=== PATIENT | male | born 1965 | race Caucasian/White ===

== ENCOUNTER 2019-08-05 17:38 | Inpatient (IN) | payer OTHER ==
[~2019-08-05] VITALS: Ht 170.2 cm; Wt 61.7 kg
[2019-08-05 17:50] VITALS: BP 102/69
[2019-08-05 18:42] LABS: BASOPHILS % (AUTO) 0.1 % (0.0-2.0); EOSINOPHILS # (AUTO) 0.1 K/uL (0-0.4); EOSINOPHILS % (AUTO) 1.2 % (0.0-4.0); HEMATOCRIT 30.1 % (36-52); HEMOGLOBIN 9.9 g/dL (12.0-18.0); LYMPHOCYTES % (AUTO) 12.1 % (20.5-51.1); MEAN CORPUSCULAR HEMOGLOBIN 28 pg (27-31); MEAN CORPUSCULAR HGB CONC 33 g/dL (33-37); MEAN CORPUSCULAR VOLUME 84.5 fL (80-94); MONOCYTES # (AUTO) 0.7 K/uL (0.8-1.0); MONOCYTES % (AUTO) 8.5 % (1.7-9.3); NEUTROPHILS # (AUTO) 6.3 K/uL (1.8-7.7); NEUTROPHILS % (AUTO) 78.1 % (42.2-75.2); PLATELET COUNT (AUTO) 531 K/uL (140-450); RED BLOOD CELL COUNT(AUTO) 3.56 MIL/uL (4.20-6.10); RED CELL DISTRIBUTION WIDTH 17.6 % (11.6-13.7); WHITE BLOOD COUNT (AUTO) 8.1 K/uL (4.8-10.8)
[2019-08-05 19:24] LABS: ANION GAP 14.1 (8-16); CARBON DIOXIDE 22.7 mmol/L (21-32); POTASSIUM 3.8 mmol/L (3.5-5.1)
[2019-08-05 19:25] LABS: ALBUMIN 2.6 g/dL (3.4-5.0); CREATININE 1.1 mg/dL (0.7-1.3); TOTAL BILIRUBIN 0.4 mg/dL (0.0-1.0)
--- NOTE | 2019-08-05 20:00 | NUR ---
CONTINUOUS DIARRHEA AND AB PAIN X 1 MONTH WITH NO IMPROVEMENTS AFTER ANTIBIOTICS REFERRED FROM [facility] FOR POSSIBLE CDIFF. PATIENT ALSO STATES THAT HE HAS HAD YELLOW DIARRHEA. ERMD MADE AWARE OF STATUS. SIDE RAILS X1. PMH- DENIES RX- DENIES
--- NOTE | 2019-08-05 22:33 | NUR ---
PATIENT TAKEN TO CT.
[2019-08-05 22:53] LABS: AMYLASE 105 U/L (25-115); LIPASE 202 U/L (73-393)
--- NOTE | 2019-08-05 23:18 | NUR ---
PATIENT IS SLEEPING AT THIS TIME. WILL CONTINUE TO MONITOR.
[2019-08-05 23:22] LABS: APPEARANCE,URINE CLEAR (CLEAR); BILIRUBIN,URINE NEGATIVE (NEGATIVE); BLOOD, URINE NEGATIVE (NEGATIVE); COLOR,URINE YELLOW (YELLOW); LEUKOCYTE ESTERASE ,URINE NEGATIVE (NEGATIVE); NITRITE, URINE NEGATIVE (NEGATIVE); PH,URINE 5.5 (5.0-9.0); UGLUCOSE NEGATIVE (NEGATIVE)
[2019-08-05 23:42] LABS: RBC,URINE 0-5 /HPF (0-5); WBC,URINE 0-5 /HPF (0-5)
--- NOTE | 2019-08-06 00:12 | NUR ---
PATIENT IS SLEEPING AT THIS TIME. NO DISTRESS. WILL CONTINUE TO MONITOR.
--- NOTE | 2019-08-06 00:51 | NUR ---
STOOL SAMPLE COLLECTED , SENT TO LAB FOR CULTURE. PT C/O HEADACHE DR BERG MADE AWARE WILL CONTINUE W/ ORDERS.
[2019-08-06] MEDS ORDERED: ACETAMINOPHEN 325 MG TAB PO ONE (00:55)
[2019-08-06] MEDS ORDERED: ACETAMINOPHEN EXTRA STRENGTH 500 MG TAB ONE (00:59)
--- NOTE | 2019-08-06 02:50 | NUR ---
SECOND STOOL SAMPLE COLLECTED. STOOL IS BROWN FLUFFY LIQUID; TYPE 6.
[2019-08-06] MEDS ORDERED: ALBUTEROL 0.083% 2.5 MG/3 ML NEBU INH PRN (03:40)
[2019-08-06] MEDS ORDERED: HYDROcodone/APAP 5/325 MG 1 TAB TAB PO PRN (03:40)
[2019-08-06] MEDS ORDERED: MORPHINE SULFATE 4 MG/ML SYR IVP PRN (03:40)
[2019-08-06] MEDS ORDERED: ACETAMINOPHEN 325 MG TAB PO PRN (03:40)
[2019-08-06] MEDS ORDERED: VANCOMYCIN 1,000 MG VIAL ONE (04:55)
--- NOTE | 2019-08-06 05:00 | NUR ---
PER KIM PEAROSN GIVEN PO.
--- NOTE | 2019-08-06 05:12 | NUR ---
Admited to MED SURG. Belongings list completed. Report to JENNY MARTINS . Addendum: 08/06/19 at 0723 [address]
[2019-08-06 05:15] VITALS: BP 104/66
--- NOTE | 2019-08-06 05:15 | NUR ---
RECEIVED PT FROM ER NURSEMARCELO. PT CAME IN WHEELCHAIR AND AMBULATED TO [facility] BED. PT WENT RESTROOM AND HAD DIARRHEA. NO SOB OR ANY RESPIRATORY DISTRESS NOTED ON ROOM AIR. DENIES PAIN. IV SITE ON LAC, 20G, INTACT, PATENT AND ASYMPTOMATIC. MRSA NARES SWAB DONE, VITAL SIGN CHECKED, WITHIN PT'S BASELINE. BOARD UPDATED, INTRODUCE SELF TO PT. ORIENT ROOM TO PT. DX: DIARRHEA, RULE OUT C. DIFF, AND HIV. PLAN OF CARE REVIEWED WITH PT. PT VERBALIZED UNDERSTANDING. BED IN LOW POSITION, CALL LIGHT WITHIN REACH.
[2019-08-06] MEDS: DEXT 5% /NACL 0.9% 1,000 ML IV SCH ×3 (05:50→23:40)
[2019-08-06] MEDS: metroNIDAZOLE 500 MG/NS PREMIX 100 ML IV SCH ×3 (05:51→21:11)
--- NOTE | 2019-08-06 05:51 | NUR ---
GIVEN FLUID AND FLAGYL MD ORDERED. HELD PO VANCOMYCIN D/T LAST DOSE GIVEN AT 0505 AM AT ER.
[2019-08-06] MEDS ORDERED: VANCOMYCIN 1,000 MG VIAL PO SCH ×2 (06:00→07:00)
[2019-08-06] MEDS ORDERED: VANCOMYCIN 1,000 MG VIAL PO STA (06:23)
--- NOTE | 2019-08-06 06:47 | NUR ---
PT LYING IN THE BED. NO ACUTE DISTRESS NOTED.
--- NOTE | 2019-08-06 07:41 | NUR ---
RECEIVED REPORT FROM MEAT CUTTER RN. PT IS AAOX4, COOPERATIVE. PT SKIN IS INTACT. PT EXPERIENCING DIARRHEA PER MEAT CUTTER. PT HAS IV IN THE LEFT AC 20G INFUSING D5NS AT 100ML/HR. EXPLAINED POC TO PT AND PT VERBALIZED UNDERSTANDING. ALL NEEDS MET. WILL CONTINUE TO ROUND FREQUENTLY ON PT. BED IN LOW POSITION, CALL LIGHT WITHIN REACH.
[2019-08-06 08:00] VITALS: BP 104/70
[2019-08-06] MEDS ORDERED: LEVOFLOXACIN 750 MG/D5W PREMIX 150 ML IV SCH (09:00)
--- NOTE | 2019-08-06 09:41 | NUR ---
ADMINISTERED MORNING MEDS TO PT. PT TOLERATED WELL. WILL CONTINUE TO ROUND FREQUENTLY ON PT. BED IN LOW POSITION.
--- NOTE | 2019-08-06 10:21 | NUR ---
RECEIVED CALL FROM AGER OPERATOR STATING THAT PT FAMILY NEEDED BLOOD TESTING PER A NURSE. I ASKED CHARGE NURSE IF WE DID THAT AND SHE STATED NO. AT STATION AND HE STATED NO ONE WAS TOLD THAT. AGER OPERATOR NOTIFIED THAT POSSIBLE MISUNDERSTANDING HAPPENED. Addendum: 08/06/19 at 1432 by Chelita Guy RN BLOOD TESTING NEEDED TO RULE OUT INFECTIOUS BACTERIA THAT PT MUST HAVE.
--- NOTE | 2019-08-06 10:26 | NUR ---
SPOKE WITH PT ABOUT FAMILY CONCERNS AND ASKED HI MIF ANY NURSE TOLD HIM THAT FAMILY NEEDED TO BE TESTED FOR INFECTIOUS BACTERIA. PER PT HE STATED THAT FAMILY MADE IT UP AND HE ALSO ASKED TO PLEASE NOT GIVE ANY FAMILY INFORMATION AND TO DIRECT THEM TO HIM. WILL FOLLOW PT'S WISHES.
--- NOTE | 2019-08-06 11:34 | NUR ---
PT RESTING IN BED. ALL NEEDS MET. WILL CONTINUE TO ROUND FREQUENTLY ON PT. BED IN LOW POSITION, CALL LIGHT WITHIN REACH.
--- NOTE | 2019-08-06 13:28 | NUR ---
PT RESTING IN BED. ALL NEEDS MET. WILL CONTINUE TO ROUND FREQUENTLY ON PT. BED IN LOW POSITION, CALL LIGHT WITHIN REACH.
--- NOTE | 2019-08-06 15:29 | NUR ---
PT RESTING IN BED. ALL NEEDS MET. WILL CONTINUE TO ROUND FREQUENTLY ON PT. BED IN LOW POSITION, CALL LIGHT WITHIN REACH.
--- NOTE | 2019-08-06 17:15 | NUR ---
PT RESTING IN BED. ALL NEEDS MET.
[2019-08-06 18:00] VITALS: BP 133/88
--- NOTE | 2019-08-06 19:15 | NUR ---
ENDORSED PT TO TECHNOLOGY RECRUITER FOR CONTINUITY OF CARE. PT IN STABLE CONDITION.
--- NOTE | 2019-08-06 19:30 | NUR ---
RECEIVED BEDSIDE REPORT FROM DAY SHIFT NURSE. PATIENT IS AWAKE, ALERT, AND COOPERATIVE. RESPIRATION EVEN UNLABORED ON ROOM AIR. NO DISTRESS NOTED. SKIN IS WARM AND DRY. IV PATENT AND INTACT. DENIES PAIN. PLAN OF CARE WAS DISCUSSED. ALL SAFETY MEASURES IN PLACE. BED IS AT LOW POSITION. CALL LIGHT WITHIN REACH AND VERBALIZE ITS USE. WILL CONTINUE TO MONITOR.
--- NOTE | 2019-08-06 20:07 | NUR ---
INITIAL ASSESSMENT DONE. VITALS WERE TAKEN. WILL CONTINUE TO MONITOR.
--- NOTE | 2019-08-06 20:14 | NUR ---
RECEIVED PT ON RA, RESTING IN BED, SP02 98%, BREATH SOUNDS WERE CLEAR. PT WAS INFORMED TO NOTIFY RN WHEN EXPERIENCING SOB. NO RESPIRATORY DISTRESS NOTED. WILL CONTINUE TO MONITOR PT
--- NOTE | 2019-08-06 21:00 | NUR ---
ALL SCHEDULED MEDS WERE GIVEN PER ORDER. NO ASE NOTED. WILL CONTINUE TO MONITOR.
--- NOTE | 2019-08-06 23:00 | NUR ---
CHECKED PATIENT. PATIENT WATCHING TV RESPIRATION EVEN UNLABORED ON ROOM AIR. NO DISTRESS NOTED. WILL CONTINUE TO MONITOR.
--- NOTE | 2019-08-06 23:45 | NUR ---
COLLECT PATIENT STOOL SPECIMEN. SEND IT TO THE LAB.
[2019-08-07] VITALS: BP 99/68
--- NOTE | 2019-08-07 | NUR ---
VITALS WERE TAKEN. PATIENT IN STABLE CONDITION. CALL LIGHT WITHIN REACH. WILL CONTINUE TO MONITOR.
--- NOTE | 2019-08-07 01:46 | NUR ---
CHECKED PATIENT. PATIENT SLEEPING RESPIRATION EVEN UNLABORED ON ROOM AIR. NO DISTRESS NOTED. WILL CONTINUE TO MONITOR.
--- NOTE | 2019-08-07 04:05 | NUR ---
IV ANTIBIOTIC GIVEN PER ORDER. WILL CONTINUE TO MONITOR.
[2019-08-07] MEDS: DEXT 5% /NACL 0.9% 1,000 ML IV SCH ×2 (04:11→19:40)
[2019-08-07] MEDS: metroNIDAZOLE 500 MG/NS PREMIX 100 ML IV SCH ×3 (04:12→20:44)
--- NOTE | 2019-08-07 07:26 | NUR ---
ENDORSED PATIENT TO DAY SHIFT NURSE FOR CONTINUITY OF CARE. PATIENT IN STABLE CONDITION
--- NOTE | 2019-08-07 07:28 | NUR ---
RECEIVED BEDSIDE REPORT FROM DAY CARE HOME PROVIDER NURSE, PT IS AWAKE AND ALERT, NO S/S OF ACUTE DISTRESS, NO C/O PAIN. ON ROOM AIR, SKIN INTACT. CONTACT ISOLATION IN PLACE. PT IS AMBULATORY AND ABLE TO MAKE NEEDS KNOWN. PER NIGHT NURSE, STOOL WAS ALREADY COLLECTED AND SENT TO LAB FOR ORDERED TESTS. CALL LIGHT IS WITHIN REACH.
[2019-08-07 08:00] VITALS: BP 102/70
--- NOTE | 2019-08-07 08:08 | NUR ---
PATIENT HAS BEEN SCREENED AND CATEGORIZED HIGH NUTRITION RISK. PATIENT WILL BE SEEN WITHIN 1-2 DAYS OF ADMISSION. 08/07/[address]
[2019-08-07 08:14] LABS: ANION GAP 14.2 (8-16); CARBON DIOXIDE 21.4 mmol/L (21-32); CREATININE 0.9 mg/dL (0.7-1.3); POTASSIUM 3.6 mmol/L (3.5-5.1)
[2019-08-07 08:18] LABS: MAGNESIUM 1.7 mg/dL (1.8-2.4); PHOSPHORUS 2.8 mg/dL (2.5-4.9)
--- NOTE | 2019-08-07 09:45 | NUR ---
AWAKE AND ALERT VERBALLY RESPONSIVE DENIES SOB AT THIS TIME GOOD CHEST RISE NO HHN PRN THERAPY REQUIRED
[2019-08-07] MEDS: LEVOFLOXACIN 500 MG/D5W PREMIX 100 ML IV SCH (10:07)
--- NOTE | 2019-08-07 10:10 | NUR ---
AM LEVAQUIN IVPB HUNG AND INFUSING WELL. PT IN NO ACUTE DISTRESS. MOTHER IS VISITING AT BEDSIDE. WILL CONTINUE TO MONITOR.
--- NOTE | 2019-08-07 12:29 | NUR ---
METRONIDAZOLE IV INFUSING. PT EATING LUNCH. NO S/S OF ACUTE DISTRESS.
--- NOTE | 2019-08-07 13:16 | NUR ---
RD RECOMMENDATIONS: 1. CONTINUE ON BLAND/SOFT DIET TOLERATED. 2. RDN TO ADD HEALTH SHAKE 6-OZ (VANILLA), 1 CARTON WITH MEALS TID. THIS WILL PROVIDE 900 KCAL AND 27 GM PROTEIN TO HELP MEET NEEDS. 3. CONSULT RDN PRN. 4. RD WILL F/U 2-3 DAYS; HIGH RISK. SUZETTE PINEDO, MS, RDN
--- NOTE | 2019-08-07 13:34 | NUR ---
PT SEEN BY DR RUSH. I INFORMED DR RUSH ABOUT PT'S MAG LEVEL 1.7, HE WILL PUT IN MED ORDERS.
[2019-08-07 13:41] LABS: BASOPHILS % (AUTO) 0.7 % (0.0-2.0); EOSINOPHILS # (AUTO) 0.1 K/uL (0-0.4); HEMATOCRIT 25.4 % (36-52); HEMOGLOBIN 8.3 g/dL (12.0-18.0); LYMPHOCYTES # (AUTO) 1.4 K/uL (2.0-11.5); LYMPHOCYTES % (AUTO) 27.7 % (20.5-51.1); MEAN CORPUSCULAR HEMOGLOBIN 28 pg (27-31); MEAN CORPUSCULAR HGB CONC 33 g/dL (33-37); MEAN CORPUSCULAR VOLUME 85.6 fL (80-94); MONOCYTES # (AUTO) 0.6 K/uL (0.8-1.0); MONOCYTES % (AUTO) 11.9 % (1.7-9.3); NEUTROPHILS # (AUTO) 2.9 K/uL (1.8-7.7); NEUTROPHILS % (AUTO) 58.7 % (42.2-75.2); PLATELET COUNT (AUTO) 393 K/uL (140-450); RED BLOOD CELL COUNT(AUTO) 2.97 MIL/uL (4.20-6.10); RED CELL DISTRIBUTION WIDTH 17.4 % (11.6-13.7)
[2019-08-07] MEDS ORDERED: MAG SULF 2000 MG/WATER PREMIX 50 ML IV SCH (14:00)
[2019-08-07] MEDS ORDERED: MAGNESIUM CITRATE 300 ML BTL PO SCH (14:08)
[2019-08-07] MEDS ORDERED: BOWEL EVACUANT DRINK 4,000 ML PDS PO SCH (14:30)
--- NOTE | 2019-08-07 14:51 | NUR ---
PROVIDED THE PT DALIA TO START BOWEL PREP FOR COLONOSCOPY TOMORROW. CONSENT OBTAINED.
[2019-08-07 16:00] VITALS: BP 112/78
--- NOTE | 2019-08-07 17:12 | NUR ---
PT ENCOURAGED TO CONTINUE DRINK GOLYTELY AND CITROMA FOR BOWEL PREP. PT REPORTS HAVING A DIARRHEA BM "EVERY HOUR" TODAY.
--- NOTE | 2019-08-07 19:03 | NUR ---
CHANGED PT'S LINENS
--- NOTE | 2019-08-07 19:18 | NUR ---
ENDORSED PT TO ROAD OILING TRUCK DRIVER NURSE IN STABLE CONDITION.
--- NOTE | 2019-08-07 19:19 | NUR ---
RECEIVED BEDSIDE REPORT FROM CLOUD PHYSICIST NURSE, PT IS AWAKE AND ALERT, NO S/S OF ACUTE DISTRESS, NO C/O PAIN. ON ROOM AIR, SKIN INTACT. CONTACT ISOLATION IN PLACE. PT IS AMBULATORY AND ABLE TO MAKE NEEDS KNOWN. WITH IVF INFUSING D5NS AT 100ML/HR AT THE L AC G 20, PATENT AND INTACT. CALL LIGHT IS WITHIN REACH.
--- NOTE | 2019-08-07 22:00 | NUR ---
COLLECTED THE STOOL SAMPLE FOR CRYPTOSPORIDIUM AND AMEBIASIS, NOTED BLOODY STOOL. WILL INFORM CARGO OPERATIONS AGENT DR NIC RHODES
--- NOTE | 2019-08-07 22:09 | NUR ---
TALKED TO PHOTOGRAMMETRIC TECHNICIAN [facility], AND ASKED WHEN THE CRYPTOSPORIDIUM AND AMEBIASIS WILL BE READY. AND GOT AN INFO THAT THE CARRIER JUST LEFT AND THAT THE STOOL WILL BE SENT TO [facility] AT 0730AM , AND THE RESULT THEY DONT KNOW YET DEPENDING ON [facility]. NO STAT FOR STOOL EXAMS
--- NOTE | 2019-08-07 22:14 | NUR ---
CALLED [facility]K LINE SPOKE TO ELGIN
--- NOTE | 2019-08-07 22:20 | NUR ---
TALKED TO DR. Sincere BLAIR EDUCATIONAL SPEECH LANGUAGE CLINICIAN, RE: BLOODY STOOL. WITH ORDERS, WILL CARRY OUT ORDERS
[2019-08-07] MEDS ORDERED: PANTOPRAZOLE 40 MG INJ VIAL IVP ONE (22:50)
[2019-08-08] VITALS: BP 103/74
--- NOTE | 2019-08-08 | NUR ---
CHECKED ON PT, AND CHECKED ON IV SITE, PATENT AND INTACT. PT AMBULATING AND STILL GOING TO THE RESTROOM ALMOST EVERY HR FOR BM.PATIENT'S STOOL HAS SOME PARTICLES IN IT, AND STILL BLOODY RED Addendum: 08/08/19 at 0700 by Keely Arango RN PLS AMEND TO: PATIENT GOING TO BATHROOM EVERY 3 HRS NOW; JESICA WAS FINISHED IN THE AM SHIFT. NO MORE ORDERS IN THE NOC SHIFT FOR BOWEL PREP MEDS
[2019-08-08] MEDS: metroNIDAZOLE 500 MG/NS PREMIX 100 ML IV SCH ×3 (05:13→21:51)
--- NOTE | 2019-08-08 05:44 | NUR ---
PT STILL WENT TO BATHROOM, STABLE GAIT; VOIDED, AND BM DONE BY PT, STILL BLOODY RED STOOL
--- NOTE | 2019-08-08 05:44 | NUR ---
PT COULD NOT COUGH OUT PHLEGM FOR SPUTUM COLLECTION; WILL INFORM DR. GARRETT Addendum: 08/08/19 at 0653 by Keely Arango RN PLS DELETE WRONG PATIENT
[2019-08-08] MEDS: DEXT 5% /NACL 0.9% 1,000 ML IV SCH ×2 (05:56→15:40)
--- NOTE | 2019-08-08 06:55 | NUR ---
PT FOR COLONOSCOPY, NPO MAINTAINED, STILL WITH PARTICLES IN THE STOOL, BLOODY RED. WILL ENDORSE TO NEXT SHIFT
--- NOTE | 2019-08-08 07:10 | NUR ---
RECEIVED PT FROM NIGHT NURSE. PT AWAKE IN BED AAOX4. RESPIRATIONS EVEN AND UNLABORED ON ROOM AIR. DENIES PAIN AT THIS TIME. IV IN PLACE AND INFUSING PER ORDER, ASYMPTOMATIC AND PATENT L AC 20G. BED IN LOW POSITION. SAFETY MEASURES IN PLACE. CALL LIGHT WITHIN REACH. WILL CONTINUE TO MONITOR.
[2019-08-08 07:37] LABS: BASOPHILS % (AUTO) 0.2 % (0.0-2.0); EOSINOPHILS # (AUTO) 0.1 K/uL (0-0.4); EOSINOPHILS % (AUTO) 2.8 % (0.0-4.0); HEMATOCRIT 28.1 % (36-52); HEMOGLOBIN 9.2 g/dL (12.0-18.0); LYMPHOCYTES # (AUTO) 1.7 K/uL (2.0-11.5); LYMPHOCYTES % (AUTO) 41.4 % (20.5-51.1); MEAN CORPUSCULAR HEMOGLOBIN 28 pg (27-31); MEAN CORPUSCULAR HGB CONC 33 g/dL (33-37); MEAN CORPUSCULAR VOLUME 83.9 fL (80-94); MONOCYTES # (AUTO) 0.5 K/uL (0.8-1.0); MONOCYTES % (AUTO) 12.4 % (1.7-9.3); NEUTROPHILS # (AUTO) 1.8 K/uL (1.8-7.7); NEUTROPHILS % (AUTO) 43.2 % (42.2-75.2); PLATELET COUNT (AUTO) 497 K/uL (140-450); RED BLOOD CELL COUNT(AUTO) 3.36 MIL/uL (4.20-6.10); RED CELL DISTRIBUTION WIDTH 17.7 % (11.6-13.7); WHITE BLOOD COUNT (AUTO) 4.2 K/uL (4.8-10.8)
[2019-08-08 07:51] LABS: CARBON DIOXIDE 18.6 mmol/L (21-32); CREATININE 0.8 mg/dL (0.7-1.3); POTASSIUM 3.6 mmol/L (3.5-5.1)
[2019-08-08 07:52] LABS: MAGNESIUM 2.1 mg/dL (1.8-2.4); PHOSPHORUS 3.4 mg/dL (2.5-4.9)
[2019-08-08 08:00] VITALS: BP 106/67
[2019-08-08] MEDS ORDERED: PANTOPRAZOLE 40 MG INJ VIAL IVP SCH (09:00)
[2019-08-08] MEDS: LEVOFLOXACIN 500 MG/D5W PREMIX 100 ML IV SCH (09:06)
--- NOTE | 2019-08-08 09:12 | NUR ---
MEDICATIONS ADMINISTERED PER ORDER. PT TOLERATED WELL. WILL CONTINUE TO MONITOR.
[2019-08-08] MEDS ORDERED: MIDAZOLAM 2 MG/2 ML VIAL ONE (11:43)
[2019-08-08] MEDS ORDERED: fentaNYL 0.05 MG/ML VIAL ONE (11:43)
[2019-08-08] MEDS ORDERED: diphenhydrAMINE 50 MG/ML VIAL ONE (11:43)
--- NOTE | 2019-08-08 12:10 | NUR ---
PT TRANSPORTED OFF UNIT FOR COLONOSCOPY.
--- NOTE | 2019-08-08 13:14 | NUR ---
PT RETURNS TO UNIT FROM COLONOSCOPY. STABLE CONDITION. NO DISTRESS NOTED. DENIES PAIN. WILL CONTINUE TO MONITOR.
[2019-08-08] MEDS ORDERED: fentaNYL 0.05 MG/ML VIAL IVP ONE (13:40)
[2019-08-08] MEDS ORDERED: MIDAZOLAM 2 MG/2 ML VIAL IVP ONE (13:40)
--- NOTE | 2019-08-08 15:03 | NUR ---
CALLED PT'S PCP OFFICE VIVI WOODWARD MADE F/U APPOINTMENT [phone] THE APPOINTMENT IS Thursday08/11/19 AT 1240 PM THE ADDRESS [address] [facility] APPOINTMENT REMINDER GIVEN TO THE PT. Addendum: 08/11/19 at 1320 by Yolanda Marie CM DISCHARGE PLANNING :COLONOSCOPY DONE BY DR SALAS WAITING FOR BIOPSY RESULT, DC PLANING PER DR SANTILLAN RECOMMENDATION. STILL Tanner ALCANTAR+3.2 REMINDED RN TO NOTIFY MD . Addendum: 08/12/19 at 1129 by Yolanda Marie CM DC PLANNING STILL WAITING FOR CULTURES AND BIOPSY OF COLONOSCOPY, AND PATHOLOGY RESULT. CM TO FOLLOW
--- NOTE | 2019-08-08 15:46 | NUR ---
VITAL SIGNS MONITORED AT THIS TIME. PT IN STABLE CONDITION. DENIES PAIN. CALL LIGHT WITHIN REACH. WILL CONTINUE TO MONITOR.
[2019-08-08 16:00] VITALS: BP 110/76
--- NOTE | 2019-08-08 19:20 | NUR ---
REPORT GIVEN TO NIGHT NURSE FOR CONTINUITY OF CARE.
--- NOTE | 2019-08-08 19:30 | NUR ---
RECEIVED FROM AM RN IN BED SLEEPING. ABLE TO WAKE UP EASILY WHEN CALLED BY NAME. CARE PLANS FOR THE NIGHT DISCUSSED WITH HIM AND CALL LIGHT WITH IN REACH. ENCOURAGED TO CALL FOR ANY HELP HE MAY NEED. "OK" NO COMPLAINTS DONE AT THIS TIME.
[2019-08-09] MEDS: DIPHENOXYLATE /ATROPINE 2.5 MG TAB PO PRN (00:57)
--- NOTE | 2019-08-09 00:58 | NUR ---
PT. AWAKE FOR A WHILE NOW. MEDICATED WITH LOMOTIL P.O. REQUESTED. ABLE TO VERBALIZE NEEDS WELL. STATED HE HAD SOFT BM X 2 TONIGHT SINCE START OF SHIFT.
[2019-08-09 01:11] VITALS: BP 106/74
[2019-08-09] MEDS: DEXT 5% /NACL 0.9% 1,000 ML IV SCH ×3 (01:40→22:29)
--- NOTE | 2019-08-09 01:41 | NUR ---
RECEIVED PATIENT ON ROOM AIR, PULSE OX SAT 99%. PATIENT DENIES SOB. PRN HHN NOT INDICATED AT THIS TIME. NO ACUTE DISTRESS NOTED. WILL CONTINUE TO MONITOR. Addendum: 08/09/19 at 0143 by Katelin Harvey RT ASSESSMENT DONE 08/08/2019 AT 2100.
--- NOTE | 2019-08-09 03:13 | NUR ---
SLEEPING WELL. NO RESTLESSNESS. CALL LIGHT WITH IN REACH.
--- NOTE | 2019-08-09 03:25 | NUR ---
NO RESTLESSNESS. PT. SLEEPING. CALL LIGHT WITH IN REACH.
[2019-08-09] MEDS: metroNIDAZOLE 500 MG/NS PREMIX 100 ML IV SCH ×3 (05:07→20:38)
--- NOTE | 2019-08-09 06:26 | NUR ---
PT. SLEEPING BUT EASY TO WAKE UP WHEN CALLED BY NAME. STATED HE HAD SMALL SOFT BM X 3 AND URINATED X 4.
--- NOTE | 2019-08-09 07:10 | NUR ---
REPORT RECEIVED FROM NURSE ALBERT, PT SLEEPING, APPEARS COMFORTABLE, IV INFUSING PER ORDER, NO S/S OF ACUTE DISTRESS NOTED AT THIS TIME, CALL LIGHT AND PERSONAL ITEMS WITHIN EASY REACH, SAFETY PRECAUTIONS IN PLACE, WILL CONTINUE TO MONITOR.
[2019-08-09 07:13] LABS: ANION GAP 13.8 (8-16); CARBON DIOXIDE 21.8 mmol/L (21-32); CREATININE 0.8 mg/dL (0.7-1.3); POTASSIUM 3.6 mmol/L (3.5-5.1)
[2019-08-09 07:24] LABS: HEMATOCRIT 25.6 % (36-52); HEMOGLOBIN 8.5 g/dL (12.0-18.0); MEAN CORPUSCULAR HEMOGLOBIN 28 pg (27-31); MEAN CORPUSCULAR HGB CONC 33 g/dL (33-37); MEAN CORPUSCULAR VOLUME 83.9 fL (80-94); PLATELET COUNT (AUTO) 457 K/uL (140-450); RED BLOOD CELL COUNT(AUTO) 3.06 MIL/uL (4.20-6.10); RED CELL DISTRIBUTION WIDTH 17.4 % (11.6-13.7)
[2019-08-09 07:28] LABS: MAGNESIUM 1.7 mg/dL (1.8-2.4); PHOSPHORUS 3.2 mg/dL (2.5-4.9)
[2019-08-09 08:00] VITALS: BP 109/66
[2019-08-09] MEDS: LEVOFLOXACIN 500 MG/D5W PREMIX 100 ML IV SCH (08:27)
[2019-08-09] MEDS: ONDANSETRON 4 MG/2 ML VIAL IVP PRN ×2 (08:27→16:35)
[2019-08-09 09:19] LABS: EOSINOPHILS % (MANUAL) 2 % (0-4); LYMPHOCYTES % (MANUAL) 24 % (20-46); MONOCYTES % (MANUAL) 19 % (5-12)
--- NOTE | 2019-08-09 10:00 | NUR ---
PT A/O ABLE TO COMMUNICATE NEEDS, PT COMFORTABLE, DENIES PAIN, NO S/S OF ACUTE DISTRESS NOTED AT THIS TIME, CALL LIGHT AND PERSONAL ITEMS WITHIN EASY REACH, SAFETY PRECAUTIONS IN PLACE, WILL CONTINUE TO MONITOR.
--- NOTE | 2019-08-09 13:00 | NUR ---
PT REMAINS A/O ABLE TO COMMUNICATE NEEDS, PT DENIES PAIN, DENIES NV, TOLERATED LUNCH WELL. ASSISTED PT WITH SET UP FOR HYGIENE. NO S/S OF ACUTE DISTRESS NOTED AT THIS TIME, CALL LIGHT AND PERSONAL ITEMS WITHIN EASY REACH, SAFETY PRECAUTIONS IN PLACE, WILL CONTINUE TO MONITOR.
--- NOTE | 2019-08-09 14:15 | NUR ---
08/09/19 RD FOLLOW UP COMPLETED PLEASE REFER TO NUTRITION ASSESSMENT UNDER CARE ACTIVITY FOR ESTIMATED NUTRITIONAL NEEDS. 1. CONTINUE REGULAR DIET TOLERATED 2. RECOMMEND ENSURE BID 3. RD PROVIDED NUTRITION EDUCATION FOR INCREASING CALORIES AND PROTEIN AND COLITIS. PT ACCEPTED 4. RD TO FOLLOW-UP 3-5 DAYS, MODERATE RISK TORRI ALBA RD
--- NOTE | 2019-08-09 15:00 | NUR ---
Pt sleeping at this time, appears comfortable, no s/s of acute distress noted, safety precaution in place, call light and personal items within easy reach, will continue to monitor.
[2019-08-09 16:00] VITALS: BP 112/75
--- NOTE | 2019-08-09 16:30 | NUR ---
Pt remains a/o able to communicate needs, c/o pain to lac peripheral IV site, removed catheter intact, no active bleeding noted, inserted new peripheral iv to l forearm per Pt request, tolerated well, positive for flash and flush. No additional complaints at this time. Safety precautions in place, call light and personal items within easy reach. Will continue to monitor.
--- NOTE | 2019-08-09 19:15 | NUR ---
Pt remains awake a/o able to communicate needs. Pt denies pain or discomfort, no s/s of acute distress noted at this time. Safety precautions maintained in place. Call light and personal items within easy reach. Report endorsed to oncoming nurse Bushra.
--- NOTE | 2019-08-09 19:16 | NUR ---
RECD. RESTING IN BED, AWAKE, A/OX4. RESPIRATION EVEN AND UNLABORED. IV OF D5 NS AT 100 ML/HR INFUSING, LEFT FOREARM G22. ABLE TO AMBULATE BY HIMSELF. STATED HE IS NOT HAVING DIARRHEA BUT HAD ALREADY TWO SOFT BM. PLAN OF CARE FOR THE SHIFT DISCUSSED. VERBALIZED UNDERSTANDING. DENIES PAIN 0/10.
--- NOTE | 2019-08-09 19:25 | NUR ---
Patient's Plan of Care was discussed and reviewed with STEEL DETAILER: SARMAD COHEN
--- NOTE | 2019-08-09 20:06 | NUR ---
RECEIVED PATIENT ON ROOM AIR, PULSE OX SAT 99%. PATIENT DENIES ANY SHORTNESS OF BREATH. PRN HHN NOT INDICATED AT THIS TIME. NO ACUTE RESPIRATORY DISTRESS NOTED. WILL CONTINUE TO MONITOR.
[2019-08-09] MEDS: ZOLPIDEM 5 MG TAB PO PRN (22:26)
--- NOTE | 2019-08-09 22:26 | NUR ---
UNABLE TO SLEEP, MEDICATED WITH AMBIEN 5 MG. PO.
[2019-08-10] VITALS: BP 106/62
--- NOTE | 2019-08-10 | NUR ---
SLEEPING COMFORTABLY IN BED.
--- NOTE | 2019-08-10 03:30 | NUR ---
STILL SLEEPING IN BED, NO DISTRESS NOTED.
[2019-08-10] MEDS: metroNIDAZOLE 500 MG/NS PREMIX 100 ML IV SCH ×2 (05:11→13:46)
--- NOTE | 2019-08-10 06:10 | NUR ---
AWAKE, IN BED, STATED HE HAS WOUND INSIDE IN HIS MOUTH AND WANTS MEDICATION FOR IT, ALSO REQUESTING FOR MED FOR ITCHINESS. WILL CALL
[2019-08-10] MEDS: DEXT 5% /NACL 0.9% 1,000 ML IV SCH ×4 (06:13→21:24)
--- NOTE | 2019-08-10 07:20 | NUR ---
ENDORSED TO AM SHIFT NURSE FOR CONTINUITY OF CARE.
[2019-08-10 07:25] LABS: ANION GAP 12.4 (8-16); CREATININE 0.7 mg/dL (0.7-1.3); POTASSIUM 3.4 mmol/L (3.5-5.1)
--- NOTE | 2019-08-10 07:30 | NUR ---
Received report from police shift commander nurse. Pt is resting in bed in stable condition. Call light in reach.
[2019-08-10 07:36] LABS: MAGNESIUM 1.4 mg/dL (1.8-2.4); PHOSPHORUS 3.2 mg/dL (2.5-4.9)
[2019-08-10 08:00] VITALS: BP 105/74
[2019-08-10 09:11] LABS: HEMATOCRIT 24.3 % (36-52); HEMOGLOBIN 8.2 g/dL (12.0-18.0); MEAN CORPUSCULAR HEMOGLOBIN 29 pg (27-31); MEAN CORPUSCULAR HGB CONC 34 g/dL (33-37); MEAN CORPUSCULAR VOLUME 84.2 fL (80-94); RED BLOOD CELL COUNT(AUTO) 2.89 MIL/uL (4.20-6.10); RED CELL DISTRIBUTION WIDTH 17.1 % (11.6-13.7); WHITE BLOOD COUNT (AUTO) 3.7 K/uL (4.8-10.8)
[2019-08-10 09:12] LABS: BASOPHILS % (AUTO) 0.1 % (0.0-2.0); EOSINOPHILS # (AUTO) 0.1 K/uL (0-0.4); EOSINOPHILS % (AUTO) 1.7 % (0.0-4.0); LYMPHOCYTES # (AUTO) 1.1 K/uL (2.0-11.5); LYMPHOCYTES % (AUTO) 30.6 % (20.5-51.1); MONOCYTES # (AUTO) 0.4 K/uL (0.8-1.0); MONOCYTES % (AUTO) 11.4 % (1.7-9.3); NEUTROPHILS # (AUTO) 2.1 K/uL (1.8-7.7); NEUTROPHILS % (AUTO) 56.2 % (42.2-75.2); PLATELET COUNT (AUTO) 403 K/uL (140-450)
[2019-08-10] MEDS: LEVOFLOXACIN 500 MG/D5W PREMIX 100 ML IV SCH (09:37)
--- NOTE | 2019-08-10 10:00 | NUR ---
Pt removed IV line from right AC. IV catheter intact. Inserted IV line to right hand 20 G. IV line intact and flushed, patent. Pt tolerated well. Call light in reach. Addendum: 08/10/19 at 2126 by Bernice Geller RN Wrong patient.
[2019-08-10 11:37] LABS: CMV IGG ANTIBODY >10.00 Index (0.0 - 0.8); CMV IGM ANTIBODY <30.0 (0.0 - 0.8)
--- NOTE | 2019-08-10 13:00 | NUR ---
Pt is in be in stable condition. Call light in reach.
[2019-08-10 16:00] VITALS: BP 120/80
--- NOTE | 2019-08-10 16:00 | NUR ---
Pt is in be in stable condition. Call light in reach.
--- NOTE | 2019-08-10 17:30 | NUR ---
Shift report given to cps team lead nurse. Pt is in stable condition. Call light in reach
--- NOTE | 2019-08-10 19:36 | NUR ---
RECEIVED PT ON RA, SP02 99% WITH CLEAR BREATH SOUNDS. NO RESPIRATORY DISTRESS NOTED AT THIS TIME. PT WAS INFORMED TO CALL RN WHEN EXPERIENCING SOB. WILL CONTINUE TO MONITOR PT.
--- NOTE | 2019-08-10 19:37 | NUR ---
RECELIVED PT FROM DAY SHIFT NURSE PT IS AAOX4 AMBULATORY COMPLAINING OF LIQUIDE STOOL MEDIC WILL BE GIVEN IV ON LEFT ARM INFUSING WELL INITIAL ASSESSMENT DONE
[2019-08-10] MEDS: DIPHENOXYLATE /ATROPINE 2.5 MG TAB PO PRN (21:21)
[2019-08-10] MEDS: ZOLPIDEM 5 MG TAB PO PRN (21:22)
--- NOTE | 2019-08-10 21:50 | NUR ---
DR HOLM MARKETING BUDGET ANALYST FOR DR RUSH WAS NOTIFY MAGNESIUM LOW 1.4 AND ORDERS TO FOLLOW AND DR DAHLIA REDDY WANT TO ORDER MAGNESIUM AT THIS TIME
--- NOTE | 2019-08-10 22:00 | NUR ---
PT SLEEPING WELL AFTER SLEEPING PILL GIVEN .
[2019-08-11] VITALS: BP 110/70
--- NOTE | 2019-08-11 03:00 | NUR ---
PT HAS BEEN SLEEPING WELL DENIES ANY PAIN OR DIARRHEA
[2019-08-11] MEDS: DEXT 5% /NACL 0.9% 1,000 ML IV SCH ×2 (05:43→20:04)
--- NOTE | 2019-08-11 05:45 | NUR ---
PT HAD ONLY ONE BM LIQUID IN ALL UNDERWRITING SPECIALIST, DENIES ANY PAIN OR DISCOMFORT
--- NOTE | 2019-08-11 06:48 | NUR ---
PT WILL BE ENDORSED TO DAY SHIFT NURSE FOR CONTINUE OF CARE
[2019-08-11 07:11] LABS: BASOPHILS % (AUTO) 0.1 % (0.0-2.0); EOSINOPHILS # (AUTO) 0.1 K/uL (0-0.4); EOSINOPHILS % (AUTO) 2.1 % (0.0-4.0); HEMATOCRIT 25.2 % (36-52); HEMOGLOBIN 8.2 g/dL (12.0-18.0); LYMPHOCYTES % (AUTO) 32.2 % (20.5-51.1); MEAN CORPUSCULAR HEMOGLOBIN 27 pg (27-31); MEAN CORPUSCULAR HGB CONC 33 g/dL (33-37); MEAN CORPUSCULAR VOLUME 84.1 fL (80-94); MONOCYTES # (AUTO) 0.4 K/uL (0.8-1.0); MONOCYTES % (AUTO) 11.7 % (1.7-9.3); NEUTROPHILS # (AUTO) 1.7 K/uL (1.8-7.7); NEUTROPHILS % (AUTO) 53.9 % (42.2-75.2); PLATELET COUNT (AUTO) 423 K/uL (140-450); RED BLOOD CELL COUNT(AUTO) 2.99 MIL/uL (4.20-6.10); RED CELL DISTRIBUTION WIDTH 17.2 % (11.6-13.7); WHITE BLOOD COUNT (AUTO) 3.2 K/uL (4.8-10.8)
--- NOTE | 2019-08-11 07:14 | NUR ---
PT UNABLE TO SPECTORATE SPUTUM AT THIS TIME. B/S WERE CLEAR. NO RESPIRATORY DISTRESS NOTED
--- NOTE | 2019-08-11 07:15 | NUR ---
RECEIVED REPORT FROM STORAGE MANAGEMENT CONSULTANT NURSE ELFEGO FOR CONTINUITY OF CARE. RESPIRATIONS EVEN AND UNLABORED, ROOM AIR. IV INTACT AND PATENT. SAFETY MEASURES IN PLACE. BED IN LOW POSITION. CALL LIGHT AT BEDSIDE. WILL CONTINUE TO MONITOR.
[2019-08-11 07:17] LABS: MAGNESIUM 1.4 mg/dL (1.8-2.4); PHOSPHORUS 2.8 mg/dL (2.5-4.9)
[2019-08-11 07:20] LABS: ANION GAP 14.4 (8-16); CARBON DIOXIDE 20.8 mmol/L (21-32); CREATININE 0.8 mg/dL (0.7-1.3); POTASSIUM 3.2 mmol/L (3.5-5.1)
[2019-08-11 08:00] VITALS: BP 116/74
[2019-08-11] MEDS: LEVOFLOXACIN 500 MG/D5W PREMIX 100 ML IV SCH (10:16)
--- NOTE | 2019-08-11 10:23 | NUR ---
PT LYING IN BED WATCHING TV AT THIS TIME. PT IN STABLE CONDITION. BED IN LOW POSITION. CALL LIGHT AT BEDSIDE. WILL CONTINUE TO MONITOR.
[2019-08-11] MEDS ORDERED: MAGNESIUM OXIDE 400 MG TAB PO SCH (14:30)
[2019-08-11] MEDS ORDERED: POTASSIUM CHLORIDE 10 MEQ TABER PO SCH (14:30)
--- NOTE | 2019-08-11 15:29 | NUR ---
Liability Claims Manager Note: I called Papa Wakefield's office to make a follow up appt for patient , no answer, left message.
--- NOTE | 2019-08-11 15:58 | NUR ---
Assessment Director Note: I called and spoke with Nivia from pcp Papa Wakefield's office to make a follow up appt for patient , made appt on 08/18/19 at 12:40pm, address [address] [place] [id number]. Addendum: 08/13/19 at 1030 by Amy Gould SS Late entry for 08/11/19: Patient provided with follow up appt information.
[2019-08-11 16:00] VITALS: BP 109/66
--- NOTE | 2019-08-11 19:23 | NUR ---
GAVE REPORT TO LEAD GENERATION SPECIALIST NURSE ELFEGO FOR CONTINUITY OF CARE. PT IN STABLE CONDITION.
--- NOTE | 2019-08-11 19:25 | NUR ---
RECEIVED PT FROM TRIXIE ALVARADO PT IS AAOX4 AMBULATORY IV ON LEFT ARM INFUSING PT REPORT ONE BM LIQUID STOOL AND MEDIC WILL BE GIVEN INITIAL ASSESSMENT DONE WELL
[2019-08-11] MEDS: ZOLPIDEM 5 MG TAB PO PRN (20:03)
[2019-08-11] MEDS: DIPHENOXYLATE /ATROPINE 2.5 MG TAB PO PRN (20:04)
--- NOTE | 2019-08-11 23:00 | NUR ---
PT RESTING ON BED NOT DIARRHEA NOTED AT THIS TIME, IV ON LEFT ARM INFUSING WELL
[2019-08-12] VITALS: BP 112/80
--- NOTE | 2019-08-12 02:30 | NUR ---
PT SLEEPING WELL NOT DISTRESS NOTED
--- NOTE | 2019-08-12 05:00 | NUR ---
SPONGE BATH GIVEN LINEN CHANGED IV ON LEFT AC INFUSING WELL NOT DISTRESS ,NOT DIARRHEA NOTED
[2019-08-12] MEDS: DEXT 5% /NACL 0.9% 1,000 ML IV SCH ×2 (05:48→06:36)
--- NOTE | 2019-08-12 06:52 | NUR ---
PT HAD ONLY ONE SMALL BM NOT BLOOD REMAIN STABLE
[2019-08-12 07:02] LABS: BASOPHILS % (AUTO) 0.1 % (0.0-2.0); EOSINOPHILS # (AUTO) 0.1 K/uL (0-0.4); EOSINOPHILS % (AUTO) 2.4 % (0.0-4.0); HEMATOCRIT 25.1 % (36-52); HEMOGLOBIN 8.3 g/dL (12.0-18.0); LYMPHOCYTES # (AUTO) 1.3 K/uL (2.0-11.5); LYMPHOCYTES % (AUTO) 29.1 % (20.5-51.1); MEAN CORPUSCULAR HEMOGLOBIN 28 pg (27-31); MEAN CORPUSCULAR HGB CONC 33 g/dL (33-37); MEAN CORPUSCULAR VOLUME 83.4 fL (80-94); MONOCYTES # (AUTO) 0.5 K/uL (0.8-1.0); MONOCYTES % (AUTO) 12.5 % (1.7-9.3); NEUTROPHILS # (AUTO) 2.5 K/uL (1.8-7.7); NEUTROPHILS % (AUTO) 55.9 % (42.2-75.2); PLATELET COUNT (AUTO) 411 K/uL (140-450); RED CELL DISTRIBUTION WIDTH 17.2 % (11.6-13.7); WHITE BLOOD COUNT (AUTO) 4.4 K/uL (4.8-10.8)
[2019-08-12 07:07] LABS: ALBUMIN 1.8 g/dL (3.4-5.0); ANION GAP 14.4 (8-16); CARBON DIOXIDE 21.1 mmol/L (21-32); CREATININE 0.7 mg/dL (0.7-1.3); POTASSIUM 3.5 mmol/L (3.5-5.1); TOTAL BILIRUBIN 0.2 mg/dL (0.0-1.0)
--- NOTE | 2019-08-12 07:10 | NUR ---
RECEIVED REPORT FROM PM NURSEELFEGO. PT IS RESTING IN BED, NO SIGNS OF DISTRESS. IV INTACT AND RUNNING D5NS @100 ML/H. CALL LIGHT WITHIN REACH.
[2019-08-12 07:15] LABS: MAGNESIUM 1.3 mg/dL (1.8-2.4); PHOSPHORUS 2.8 mg/dL (2.5-4.9)
[2019-08-12 07:55] VITALS: BP 115/82
--- NOTE | 2019-08-12 11:30 | NUR ---
Pt c/o pain to left forearm IV insertion site. IV non-infiltrated, patent, & intact. Slight redness noted to site. IVF held. Ice pack applied. Per pt, no pain after interventions.
--- NOTE | 2019-08-12 13:24 | NUR ---
Received print out of biopsy result from lab. Results read back & verified with Dr Powell on the phone. Per Dr Powell, he will discuss with Dr Cervantes and will input discharge order after. Pt currently resting in bed, no signs of distress, no c/o discomfort. Call light within reach.
[2019-08-12] MEDS ORDERED: PNEUMOCOCCAL VACCINE 23 MCG/0.5 ML VIAL IMVAC SCH (13:55)
--- NOTE | 2019-08-12 14:35 | NUR ---
Dr. Cervantes came in to unit. Notified of GI biopsy results. Per Dr Cervantes (GI), pt ok to discharge.
--- NOTE | 2019-08-12 15:40 | NUR ---
Preferred pharmacy information obtained from pt, updated on pt profile per Dr Powell request.
--- NOTE | 2019-08-12 15:46 | NUR ---
Dr Powell called back & notified of preferred pharmacy. Informed physician that Dr Diane has not called back. Per Dr Powell, ok to discharge pt now per GI & ID. Order noted & carried out.
[2019-08-12 16:00] VITALS: BP 121/80
[2019-08-12] MEDS ORDERED: LEVO500T2 PO (16:11)
--- NOTE | 2019-08-12 16:30 | NUR ---
Written & verbal discharge instructions provided to pt, verbalized understanding & agree with discharge plans. Left forearm IV removed, catheter intact, no signs of complications, site covered with dry gauze. Name band removed. Pt amb off unit for discharge to home with steady gait, accompanied by mother Ambika for transport to home, all belongings with pt upon departure.
--- NOTE | 2019-08-16 12:03 | NUR ---
PCP Appointment: JOSEFINA contacted Manju from Dr. Papa Pope's office [phone]. Per Manju, patient has already made an appointment at 12:40PM on 08/18/[address] Papa Pope @ [address] [place] [phone]. Patient is aware of appointment. No further needs identified.
== END 2019-08-12 16:30 | disposition home or self-care (01) | DRG 892 ==
LOC: MED 17:38 → MTU 08-06 03:38
PROVIDERS: ADMIT Internal Medicine Pulmonary Disease; ATTEND Internal Medicine Pulmonary Disease
PROC: 0DBE8ZX Excision of Large Intestine, Via Natural or Artificial Opening Endoscopic, Diagnostic (ICD-10-PCS; principal; 2019-08-08 12:30)
PROC: 3E0234Z Introduction of Serum, Toxoid and Vaccine into Muscle, Percutaneous Approach (ICD-10-PCS; 2019-08-12)
DX: B20 Human immunodeficiency virus [HIV] disease (principal); B25.8 Other cytomegaloviral diseases; E87.1 Hypo-osmolality and hyponatremia; E44.1 Mild protein-calorie malnutrition; E86.0 Dehydration; K52.9 Noninfective gastroenteritis and colitis, unspecified; Z68.21 Body mass index [BMI] 21.0-21.9, adult; Z23 Encounter for immunization; Z91.19 Patient's noncompliance with other medical treatment and regimen
CPT/HCPCS: 36415; 80048; 80053; 81001; 82150; 83690; 83735; 84100; 84703; 85025; 86360; 86644; 87015; 87040; 87045; 87070; 87081; 87086; 87177; 87536; 88305; 88313; 88342; 89055; 90732; 99285; C9113; J1200; J1956; J2250; J2405; J3010; J3370; J3475; J3490; J7030; J7042